=== PATIENT | female | born 1965 | race Caucasian/White ===

== ENCOUNTER 2018-04-22 08:04 | Outpatient (CLI) | payer OTHER ==
[2018-04-22 09:44] LABS: Hemoglobin 13.5 g/dL (12.0-16.0); Mean Corpuscular HGB CONC 34.5 g/dL (32.0-36.0); Mean Corpuscular Hemoglobin 30.3 pg (27.0-31.0); Mean Corpuscular Volume 87.9 fL (78.0-98.0); Mean Platelet Volume 6.7 fL (7.4-10.4); Platelet Count 278 thou/uL (130-400); RBC Distribution Width 12.3 % (11.5-14.5); Red Blood Cell (RBC) Count 4.45 mill/uL (4.20-5.40)
[2018-04-22 10:16] LABS: Anion Gap 14 mmol/L (10-20); BUN (Urea Nitrogen) 25 mg/dL (9.8-20.1); Calc. Creatinine Clearance 0 mL/min (70-130); Calcium 9.3 mg/dL (7.8-10.44); Carbon Dioxide 24 mmol/L (22-29); Chloride 106 mmol/L (98-107); Estimated GFR-MDRD 68; Glucose 159 mg/dL (70-105); Sodium 140 mmol/L (136-145)
== END 2018-04-22 08:05 | disposition home or self-care (01) ==
LOC: LABBT 08:04
PROVIDERS: ATTEND Neurological Surgery
DX: Z01.818 Encounter for other preprocedural examination (principal); M54.16 Radiculopathy, lumbar region
CPT/HCPCS: 80048; 85027; 93005; 93010

== ENCOUNTER 2018-04-22 08:30 | Inpatient (IN) | payer OTHER ==
[2018-04-22 08:34] VITALS: BMI 32.9
[2018-04-26] MEDS ORDERED: Levofloxacin 500 mg/D5W 100 ml Premix Bag ONE (07:13)
[2018-04-26] MEDS ORDERED: Clindamycin/D5W 900 mg/50 ml Premix Bag ONE (07:13)
[2018-04-26] MEDS ORDERED: Sodium Chloride 0.9% 10 ML ONE (08:35)
[2018-04-26] MEDS ORDERED: Midazolam HCl 2 mg/2 ml Vial ONE (09:45)
[2018-04-26] MEDS ORDERED: Fentanyl 100 MCG/2 ML VIAL ONE (09:45)
--- NOTE | 2018-04-26 10:56 | OP ---
DATE OF PROCEDURE: 04/26/2018 SURGEON: Colin Lema M.D. CORPSMAN: Ashvin Dawn PA-C PROCEDURES: Decompressive L4-5 laminectomy, right L4-5 facetectomy, foraminotomy and discectomy, int erbody arthrodesis, intravertebral biomechanical device, local morselized autograft, demineralized marcy ne matrix, posterior lateral arthrodesis and pedicle screw instrumentation at right L4-5. PROCEDURE IN DETAIL: The patient was brought to the operating room and intubated. She was rolled in the prone position on gel-filled chest rolls. Incision made exposing L4 and L5 and our level was co nfirmed by x-ray. We performed complete L5 and inferior L4 laminectomies and completely decompressed the bilateral lateral recesses. We next focused on the right and performed a complete right L4-L5 l aminectomy, facetectomy, and foraminotomy, completely decompressing right L4 and right L5. The disk was incised and debrided and the bony endplates decorticated for the purpose of arthrodesis. Appropr iately sized intravertebral biomechanical PEEK device was brought into the field, filled with deminer alized bone matrix and local morselized autograft, and tapped into place securely at L4-5. Next, ped icle screws were placed at right L4 and right L5 using lateral fluoroscopic guidance and the position was confirmed with x-ray. A michelle was secured between the screws, connected by nuts which were final tightened. The wound was then extensively irrigated, immaculate hemostasis was secured. A combinati on of demineralized bone matrix and local morselized autograft was laid over the left laminar and pos terolateral surfaces for the purpose of arthrodesis. Vancomycin powder was applied and the wound was then closed in anatomic layers.
[2018-04-26] MEDS ORDERED: Acetaminophen ER (8hr) 650 MG TAB PO PRN (11:05)
[2018-04-26] MEDS ORDERED: Bisacodyl 10 MG SUPP PR PRN (11:07)
[2018-04-26] MEDS ORDERED: Promethazine HCl 12.5 MG SUPP PR PRN (11:07)
[2018-04-26] MEDS ORDERED: diphenhydrAMINE 50 MG/ML VIAL IVP PRN (11:07)
[2018-04-26] MEDS ORDERED: Milk Of Magnesia 30 ML UDCUP PO PRN (11:07)
[2018-04-26] MEDS ORDERED: Promethazine HCl 25 MG/ML VIAL IM PRN (11:07)
[2018-04-26] MEDS ORDERED: Promethazine 25 MG TAB PO PRN (11:07)
[2018-04-26] MEDS ORDERED: Mag-Al 1200 mg/1200 mg/30 ML UDCUP PO PRN (11:07)
[2018-04-26] MEDS ORDERED: Acetaminophen 650 MG Suppository PR PRN (11:07)
[2018-04-26] MEDS ORDERED: Acetaminophen 325 MG TAB PO PRN (11:07)
[2018-04-26] MEDS ORDERED: diphenhydrAMINE 25 MG CAP PO PRN (11:07)
[2018-04-26] MEDS: Sodium Chloride 0.9% 1,000 ML IV SCH (16:49)
[2018-04-26] MEDS: Ondansetron HCl/PF 4 MG/2 ML Vial IVP PRN (17:08)
[2018-04-26] MEDS ORDERED: Sterile Water 10 ML ONE (18:17)
[2018-04-26] MEDS ORDERED: Gabapentin 300 MG CAP PO SCH (21:00)
[2018-04-26] MEDS: tiZANidine HCl 4 MG TAB PO PRN (21:19)
[2018-04-27] MEDS: Ondansetron HCl/PF 4 MG/2 ML Vial IVP PRN (00:57)
[2018-04-27 08:17] VITALS: TEMP 98
[2018-04-27 08:26] VITALS: BP 97/56
[2018-04-27] MEDS: Sodium Chloride 0.9% 1,000 ML IV SCH (08:29)
[2018-04-27] MEDS: tiZANidine HCl 4 MG TAB PO PRN (08:37)
== END 2018-04-27 09:20 | disposition home or self-care (01) | DRG 455 ==
LOC: SURG A 04-26 06:49 → 3SE 04-26 12:25
PROVIDERS: ADMIT Neurological Surgery; ATTEND Neurological Surgery
PROC: 0SG00AJ Fusion of Lumbar Vertebral Joint with Interbody Fusion Device, Posterior Approach, Anterior Column, Open Approach (ICD-10-PCS; principal; 2018-04-26)
PROC: 0SG0071 Fusion of Lumbar Vertebral Joint with Autologous Tissue Substitute, Posterior Approach, Posterior Column, Open Approach (ICD-10-PCS; 2018-04-26)
PROC: 0SB20ZZ Excision of Lumbar Vertebral Disc, Open Approach (ICD-10-PCS; 2018-04-26)
PROC: 01NB0ZZ Release Lumbar Nerve, Open Approach (ICD-10-PCS; 2018-04-26)
DX: M51.16 Intervertebral disc disorders with radiculopathy, lumbar region (principal); K58.9 Irritable bowel syndrome, unspecified; E78.5 Hyperlipidemia, unspecified; M50.322 Other cervical disc degeneration at C5-C6 level; E66.9 Obesity, unspecified; Z68.32 Body mass index [BMI] 32.0-32.9, adult; M85.80 Other specified disorders of bone density and structure, unspecified site; Z90.710 Acquired absence of both cervix and uterus; Z88.1 Allergy status to other antibiotic agents; Z88.5 Allergy status to narcotic agent; Z88.0 Allergy status to penicillin; Z87.39 Personal history of other diseases of the musculoskeletal system and connective tissue; Z87.42 Personal history of other diseases of the female genital tract; Z98.1 Arthrodesis status; Z87.19 Personal history of other diseases of the digestive system; Z82.49 Family history of ischemic heart disease and other diseases of the circulatory system; Z83.49 Family history of other endocrine, nutritional and metabolic diseases; Z80.8 Family history of malignant neoplasm of other organs or systems; Z80.0 Family history of malignant neoplasm of digestive organs; Z80.42 Family history of malignant neoplasm of prostate; Z82.61 Family history of arthritis; Z80.51 Family history of malignant neoplasm of kidney; Z79.1 Long term (current) use of non-steroidal anti-inflammatories (NSAID); Z79.899 Other long term (current) drug therapy
CPT/HCPCS: 76001; A4216; C1713; C1768; J1956; J2250; J2270; J2405; J2550; J3010; J3370; J3490

== ENCOUNTER 2018-05-10 09:07 | Outpatient (CLI) | payer OTHER ==
--- NOTE | 2018-05-10 11:20 | RAD ---
LUMBAR SPINE RADIOGRAPH TWO TO THREE VIEW SERIES: INDICATIONS: Lumbar radiculopathy. Prior back surgery is reported. FINDINGS: There is evidence of right posterior fusion of L4-L5 with right-sided pedicle screws and a vertical i nterconnecting michelle. Intervertebral disk space at L4-L5 is also present. Mild multilevel endplate de generative change is present. There is multilevel facet sclerosis. No significant compression defor mity or significant disk space height loss of the lumbar spine. IMPRESSION: Postoperative lumbar spine with mild multilevel degenerative change. POS: [facility]
== END 2018-05-10 09:08 | disposition home or self-care (01) ==
LOC: TBSIIMAG 09:07
PROVIDERS: ATTEND Neurological Surgery
DX: M47.26 Other spondylosis with radiculopathy, lumbar region (principal); Z98.890 Other specified postprocedural states
CPT/HCPCS: 72100

== ENCOUNTER 2018-06-15 14:33 | Outpatient (CLI) | payer OTHER ==
--- NOTE | 2018-06-15 16:09 | RAD ---
LUMBAR SPINE 2 VIEWS: HISTORY: Followup from surgery. COMPARISON: Radiographs 05/10/18. FINDINGS: Five [id number] lumbar-type vertebrae. Unilateral right-sided posterior spinal fusion and diske ctomy changes of L4-5. Satisfactory position of the disk spacer without migration. No hardware complication. No anterolisthesis. No acute fracture or malalignment. IMPRESSION: Unchanged postoperative appearance of the spine. POS: [facility]
== END 2018-06-15 14:34 | disposition home or self-care (01) ==
LOC: TBSIIMAG 14:33
PROVIDERS: ATTEND Neurological Surgery
DX: M51.36 Other intervertebral disc degeneration, lumbar region (principal); Z98.1 Arthrodesis status
CPT/HCPCS: 72100

== ENCOUNTER 2018-07-02 11:41 | Outpatient (CLI) | payer OTHER ==
[2018-07-02 12:37] LABS: #Basophils 0.1 thou/uL (0.0-0.2); #Eosinphils 0.3 thou/uL (0.0-0.7); #Monocytes 0.5 thou/uL (0.11-0.59); #Neutrophils 2.9 thou/uL (1.40-6.50); %Basophils 0.9 % (0.0-1.0); %Eosinophils 5.3 % (0.0-10.0); %Lymphocytes 34.9 % (21.0-51.0); %Monocytes 8.5 % (0.0-10.0); %Neutrophils 50.3 % (42.0-75.0); Hemoglobin 12.2 g/dL (12.0-16.0); Mean Corpuscular HGB CONC 35.1 g/dL (32.0-36.0); Mean Corpuscular Hemoglobin 30.8 pg (27.0-31.0); Mean Corpuscular Volume 87.7 fL (78.0-98.0); Mean Platelet Volume 6.5 fL (7.4-10.4); Platelet Count 264 thou/uL (130-400); RBC Distribution Width 12.9 % (11.5-14.5); Red Blood Cell (RBC) Count 3.95 mill/uL (4.20-5.40); White Blood Cell (WBC) Count 5.7 thou/uL (4.8-10.8)
[2018-07-02 13:04] LABS: Anion Gap 11 mmol/L (10-20); BUN (Urea Nitrogen) 24 mg/dL (9.8-20.1); Calc. Creatinine Clearance 0 mL/min (70-130); Calcium 9.7 mg/dL (7.8-10.44); Carbon Dioxide 24 mmol/L (22-29); Chloride 106 mmol/L (98-107); Estimated GFR-MDRD 54; Glucose 113 mg/dL (70-105); Sodium 137 mmol/L (136-145)
--- NOTE | 2018-07-06 13:40 | EKG ---
Test Reason : Blood Pressure : / mmHG Vent. Rate : 080 BPM Atrial Rate : 080 BPM P-R Int : 170 ms QRS Dur : 072 ms QT Int : 368 ms P-R-T Axes : 056 032 031 degrees QTc Int : 424 ms Normal sinus rhythm Normal ECG Confirmed by BRIAN NORIEGA ([id number]) on 07/06/2018 1:39:34 PM Referred By: LITTLE Confirmed By:BRIAN NORIEGA
== END 2018-07-02 11:42 | disposition home or self-care (01) ==
LOC: LABBT 11:41
PROVIDERS: ATTEND Specialist
DX: Z01.818 Encounter for other preprocedural examination (principal); K42.9 Umbilical hernia without obstruction or gangrene
CPT/HCPCS: 80048; 85025; 93005; 93010

== ENCOUNTER → 2018-07-06 | Day surgery (SDC) | payer OTHER ==
[2018-07-02 12:01] VITALS: BMI 32.9
[~2018-07-06] MED LIST: Bupivacaine/Epinephrine 0.25% 30 ML VIAL ONE; Fentanyl 100 MCG/2 ML VIAL ONE; Ketorolac Tromethamine 30 MG/ML VIAL ONE; Levofloxacin 500 mg/D5W 100 ml Premix Bag ONE
--- NOTE | 2018-07-06 22:00 | OP ---
DATE OF SERVICE: 07/06/2018 PREOPERATIVE DIAGNOSIS: Umbilical hernia. POSTOPERATIVE DIAGNOSIS: Umbilical hernia. OPERATIVE PERFORMED: Umbilical hernia repair with mesh patch. SURGEON: Uri Parnell M.D. ANESTHESIA: General with laryngeal mask airway. INDICATIONS: The patient is a 53-year-old white female. She has a visible and palpable umbilical he rnia with increase in symptoms associated with this. She was taken to the operating room at this [facility] for repair. DESCRIPTION OF OPERATION: Informed consent was obtained. The patient was taken to the operating reno m where general endotracheal anesthesia was obtained. The patient was in supine position. Abdomen w as prepped with ChloraPrep and draped in sterile fashion. Local anesthetic was infiltrated with 0.25 % Marcaine with epinephrine. Curvilinear infraumbilical incision was created and dissection was edgar ied through skin and subcutaneous tissue down to the fascia. The umbilicus was reflected superiorly off the underlying hernia sac. The hernia sac was dissected circumferentially and excised. The resu lting defect was about 1.5 cm. There was negligible preperitoneal fat. A 4.3 cm Ventralex patch was obtained and passed into the abdominal cavity. The tails of this was secured superiorly and inferio rly with single interrupted sutures of 0 Prolene. The lateral aspects of the defect were closed with simple interrupted 0 Prolene sutures as well, incorporating bites of the anterior aspect of the patc h. The umbilicus was secured down to the fascia with 2 interrupted sutures of 3-0 Vicryl. The wound was closed in layers with 3-0 and 4-0 Monocryl suture. Dermabond was placed externally. A compress ion dressing was applied using cotton balls and a Tegaderm dressing. The air within the cotton balls was aspirated. There were no complications. The patient tolerated the procedure well. There was e ssentially no blood loss. She was taken to recovery room in stable condition.
== END ==
LOC: SDC 05:45
PROVIDERS: ATTEND Specialist
PROC: 0WUF0JZ Supplement Abdominal Wall with Synthetic Substitute, Open Approach (ICD-10-PCS; principal; 2018-07-06)
DX: K42.9 Umbilical hernia without obstruction or gangrene (principal); E78.5 Hyperlipidemia, unspecified; E66.9 Obesity, unspecified; Z79.899 Other long term (current) drug therapy; Z68.31 Body mass index [BMI] 31.0-31.9, adult; Z88.0 Allergy status to penicillin
CPT/HCPCS: J0131; J1885; J1956; J3010

== ENCOUNTER 2021-02-12 12:30 | Outpatient (CLI) | payer OTHER | END 2021-02-12 12:31 | disposition home or self-care (01) | LOC: TBSIIMAG 12:30 | PROVIDERS: ATTEND Neurological Surgery | DX: M54.6 Pain in thoracic spine (principal); M54.5 Low back pain; M47.816 Spondylosis without myelopathy or radiculopathy, lumbar region; M47.814 Spondylosis without myelopathy or radiculopathy, thoracic region | CPT/HCPCS: 72072; 72100 ==

== ENCOUNTER 2021-03-05 06:55 | Day surgery (SDC) | payer OTHER ==
[2021-03-01 09:06] VITALS: BMI 31.1
[2021-03-05 08:04] VITALS: BP 135/81; TEMP 98.8
== END 2021-03-05 10:55 | disposition home or self-care (01) ==
LOC: RAD 06:55
PROVIDERS: ATTEND Neurological Surgery
PROC: B02B1ZZ Computerized Tomography (CT Scan) of Spinal Cord using Low Osmolar Contrast (ICD-10-PCS; principal; 2021-03-05)
DX: M54.16 Radiculopathy, lumbar region (principal); M48.061 Spinal stenosis, lumbar region without neurogenic claudication; M48.04 Spinal stenosis, thoracic region; E78.5 Hyperlipidemia, unspecified; Z79.899 Other long term (current) drug therapy; Z88.0 Allergy status to penicillin; Z88.1 Allergy status to other antibiotic agents; Z88.5 Allergy status to narcotic agent
CPT/HCPCS: 62305; 72129; 72132; 77002